=== PATIENT | female | born 2000 | race Caucasian/White ===

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

== ENCOUNTER 2019-03-22 08:14 | Emergency (ER) | payer SELFPAY ==
[2019-03-22 08:22] VITALS: BP 105/63
--- NOTE | 2019-03-22 09:06 | XRay Report ---
RIGHT HAND, 3 VIEWS INDICATION: Pain and swelling for 2 days. COMPARISON: None. IMPRESSION: No acute osseous or soft tissue abnormality. There is mild diffuse soft tissue swelli ng suggesting cellulitis could be present. No subcutaneous gas or radiopaque foreign body is identifi ed Signer Name: Colton Lake Jr, MD Signed: 03/22/2019 9:01 AM Workstation Name: [id number]
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
== END 2019-03-22 09:44 | disposition home or self-care (01) ==
LOC: ED 08:14
DX: S60.221A Contusion of right hand, initial encounter (principal); L03.113 Cellulitis of right upper limb; F17.200 Nicotine dependence, unspecified, uncomplicated; W22.8XXA Striking against or struck by other objects, initial encounter; Y93.89 Activity, other specified; Y92.89 Other specified places as the place of occurrence of the external cause; Y99.8 Other external cause status
CPT/HCPCS: 99283

== ENCOUNTER 2020-05-27 10:42 | Emergency (ER) | payer SELFPAY ==
[2020-05-27 10:57] VITALS: BP 109/61
--- NOTE | 2020-05-27 11:32 | Emergency Department Report ---
ED Female HPI - General Chief complaint: Abdominal Pain Stated complaint: BURNING WITH URINATION/DISHCARGE Time Seen by Provider: 05/27/20 11:21 Source: patient Mode of arrival: Ambulatory Limitations: No Limitations - History of Present Illness Initial comments: Is a pleasant 20-year-old female presents emerged department chief complaint of dysuria and vaginal discharge over the past week. Patient reports some suprapubic abdominal pain. She reports one unprotected sexual partner 1 month ago. She denies any associated fever, chills, night sweats, headache, dizziness, blurry vision, nausea, vomit, diarrhea, chest pain, shortness of breath or any other associated symptoms. She rates the severity of her abdominal pain is a 3 out of 10 described as cramping denies any aggravating or alleviating factors. - Related Data Previous Rx's Medication Instructions Recorded Last Taken Type metroNIDAZOLE [Flagyl] 500 mg PO Q12HR 7 Days tab 03/23/17 Unknown Rx Naproxen [Naprosyn] 500 mg PO BID #20 tablet 03/22/19 Unknown Rx Sulfamethoxazole/Trimethoprim 1 each PO BID #10 tablet 03/22/19 Unknown Rx [Bactrim DS TAB] Phenazopyridine [Pyridium] 200 mg PO TID #6 tab 05/27/20 Unknown Rx Allergies Allergy/AdvReac Type Severity Reaction Status Date / Time No Known Allergies Allergy Verified 05/27/20 10:53 ED Review of Systems ROS: Stated complaint: BURNING WITH URINATION/DISHCARGE Other details as noted in HPI Constitutional: denies: chills, fever Eyes: denies: eye pain, eye discharge, vision change ENT: denies: ear pain, throat pain Respiratory: denies: cough, shortness of breath, wheezing Cardiovascular: denies: chest pain, palpitations Endocrine: no symptoms reported Gastrointestinal: as per HPI, abdominal pain. denies: nausea, diarrhea Genitourinary: as per HPI, dysuria, discharge. denies: urgency Musculoskeletal: denies: back pain, joint swelling, arthralgia Skin: denies: rash, lesions Neurological: denies: headache, weakness, paresthesias Psychiatric: denies: anxiety, depression Hematological/Lymphatic: denies: easy bleeding, easy bruising ED Past Medical Hx - Past Medical History Previous Medical History?: No - Surgical History Past Surgical History?: No - Social History Smoking Status: Current Some Day Smoker Substance Use Type: None - Medications Home Medications: Home Medications Medication Instructions Recorded Confirmed Last Taken Type metroNIDAZOLE [Flagyl] 500 mg PO Q12HR 7 Days tab 03/23/17 Unknown Rx Naproxen [Naprosyn] 500 mg PO BID #20 tablet 03/22/19 Unknown Rx Sulfamethoxazole/Trimethoprim 1 each PO BID #10 tablet 03/22/19 Unknown Rx [Bactrim DS TAB] Phenazopyridine [Pyridium] 200 mg PO TID #6 tab 05/27/20 Unknown Rx ED Physical Exam - General Limitations: No Limitations General appearance: alert, in no apparent distress - Head Head exam: Present: atraumatic, normocephalic - Eye Eye exam: Present: normal appearance, PERRL, EOMI Pupils: Present: normal accommodation - ENT ENT exam: Present: normal exam, normal orophraynx, mucous membranes moist - Neck Neck exam: Present: normal inspection, full ROM. Absent: tenderness, meningismus - Respiratory Respiratory exam: Present: normal lung sounds bilaterally. Absent: respiratory distress, wheezes, rales, rhonchi, stridor - Cardiovascular Cardiovascular Exam: Present: regular rate, normal rhythm, normal heart sounds. Absent: systolic murmur, diastolic murmur, rubs, gallop - GI/Abdominal GI/Abdominal exam: Present: soft, normal bowel sounds. Absent: distended, tenderness, guarding, rebound, rigid - External exam: Present: normal external exam. Absent: erythema, swelling Speculum exam: Present: normal speculum exam, vaginal discharge, other (scant vaginal discharge, normal appearing cervix ) Bi-manual exam: Present: normal bi-manual exam, other (no CMT, no adnexal tenderness ). Absent: cervical motion tendernes, adnexal tenderness, adnexal mass - Extremities Exam Extremities exam: Present: normal inspection, full ROM, normal capillary refill. Absent: tenderness - Back Exam Back exam: Present: normal inspection, full ROM, tenderness. Absent: CVA tenderness (R), CVA tenderness (L) - Neurological Exam Neurological exam: Present: alert, oriented X3, normal gait - Psychiatric Psychiatric exam: Present: normal affect, normal mood - Skin Skin exam: Present: warm, dry, intact, normal color. Absent: rash ED Course Vital Signs 05/27/20 10:53 Temperature 98.1 F Pulse Rate 56 L Respiratory 18 Rate Blood Pressure 109/61 O2 Sat by Pulse 100 Oximetry ED Medical Decision Making - Medical Decision Making Patient's pelvic exam is relatively benign. Her cervix was nonfriable in appearance and she had no cervical motion tenderness or adnexal masses or adnexal tenderness. Making my suspicion for PID and TOA less likely. She was treated for cervicitis with Rocephin and azithromycin. Urine was unremarkable showing no signs of UTI. Her abdominal exam was benign with no tenderness over McBurney's point, no fever or other symptoms to suggest acute appendicitis. She had no severe sudden onset of pain or hematuria making nephrolithiasis unlikely as well as making ovarian torsion less likely. I recommend outpatient follow- up with her [employer] in the health department for any further STD testing. Also educated her that she was not tested for any other STDs other than gonorrhea, chlamydia and trichomonas that is very important that she follows up with the health department to be tested for other possible exposures to STDs such as hepatitis, syphilis, HIV and other possible exposures. She verbalized understanding the diagnosis, treatment plan and follow-up instructions and all of her questions were answered. - Differential Diagnosis cervicitis, PID, TOA, appendicitis Critical care attestation.: If time is entered above; I have spent that time in minutes in the direct care of this critically ill patient, excluding procedure time. ED Disposition Clinical Impression: Cervicitis Disposition: DC-01 TO HOME OR SELFCARE Is pt being admited?: No Condition: Stable Instructions: Abdominal Pain (ED), Cervicitis (ED) Prescriptions: Phenazopyridine [Pyridium] 200 mg PO TID #6 tab Referrals: ANDREA OSORIO MD [Primary Care Provider] - 3-5 Days EVERETTE GE MD [Staff Physician] - 3-[address] [facility] [Outside] - 3-5 Days Forms: STI Treatment and Prevention Time of Disposition: 12:27
[2020-05-27 11:50] LABS: Bilirubin,Urine NEG (Negative); Blood,Urine NEG (Negative); Color,Urine Yellow (Yellow); Mucus,Urine FEW /HPF; Protein,Urine <15 mg/dL mg/dL (Negative); WBC,Urine < 1.0 /HPF (0.0-6.0)
[2020-05-27 11:52] LABS: HCG Qualitative,Urine Negative (Negative)
[2020-05-27] MEDS ORDERED: LIDOCAINE-MPF (1%) 10 MG/1 ML VIAL 5 ML INFILTRATI ONE (12:17)
[2020-05-27] MEDS ORDERED: AZITHROMYCIN 250 MG TAB PO ONE (12:17)
== END 2020-05-27 12:48 | disposition home or self-care (01) ==
LOC: ED 10:42
DX: N72 Inflammatory disease of cervix uteri (principal); F17.200 Nicotine dependence, unspecified, uncomplicated; Z79.899 Other long term (current) drug therapy
CPT/HCPCS: 81001; 81025; 87210; 87591; 96372; 99284; J0696

== ENCOUNTER 2021-01-03 21:42 | Emergency (ER) | payer SELFPAY ==
[2021-01-03 22:11] VITALS: BP 107/61
[2021-01-03 22:54] LABS: Bilirubin,Urine NEG (Negative); Blood,Urine NEG (Negative); Color,Urine Yellow (Yellow); Protein,Urine <15 mg/dL mg/dL (Negative); Urobilinogen,Urine < 2.0 mg/dL (<2.0)
[2021-01-03 23:28] LABS: Basophils % (Auto) 0.8 % (0.0-1.8); Eosinophils # (Auto) 0.1 K/mm3 (0.0-0.4); Eosinophils % (Auto) 2.3 % (0.0-4.3); Hematocrit 42.3 % (30.3-42.9); Hemoglobin 14.4 gm/dl (10.1-14.3); Lymphocytes # (Auto) 2.9 K/mm3 (1.2-5.4); Lymphocytes % (Auto) 44.6 % (13.4-35.0); Mean Corpuscular HGB Conc 34 % (30-34); Mean Corpuscular Volume 85 fl (79-97); Monocytes # (Auto) 0.4 K/mm3 (0.0-0.8); Platelet Count 235 K/mm3 (140-440); Red Cell Distribution Width 14.2 % (13.2-15.2)
--- NOTE | 2021-01-03 23:41 | Emergency Department Report ---
ED Female HPI - General Chief complaint: Abdominal Pain Stated complaint: VAGINAL PAIN/DISCHARGE Source: patient, family Mode of arrival: Ambulatory Limitations: No Limitations - History of Present Illness Initial comments: Patient is a nulliparous 20-year-old -[place] female with no past medical history presents to the ED with complaint of acute onset persistent sup rapubic pressure and pain and vaginal discharge for the last 1 week, worse in the last 2 days. Patient admits to having unprotected sexual intercourse with one sexual partner. Patient states that her LMP was 2 weeks ago. Patient states that the pain in her pelvic area is more pressure-like and dull. Patient denies fever, chills, nausea, vomiting, diarrhea, dysuria, urinary frequency and urgency, low back pain, chest pain, shortness of breath, vaginal bleeding, dyspareunia, change in vision or cough and sore throat. MD Complaint: vaginal discharge, pelvic pain -: Sudden, week(s) (1) Location: suprapubic, other (vaginal) Radiation: non-radiating Severity: moderate Severity scale (0 -10): 4 Quality: dull, aching Consistency: constant Improves with: none Worsens with: none Are you Now?: No Associated Symptoms: denies other symptoms, vaginal discharge, abdominal pain (suprapubic). denies: vaginal bleeding, nausea/vomiting, fever/chills, headaches, loss of appetite, dysuria, hematuria, rash, seizure, shortness of breath, syncope, weakness - Related Data Sexually active: Yes : 0 Para: 0 A: 0 Previous Rx's Medication Instructions Recorded Last Taken Type metroNIDAZOLE [Flagyl] 500 mg PO Q12HR 7 Days tab 03/23/17 Unknown Rx Naproxen [Naprosyn] 500 mg PO BID #20 tablet 03/22/19 Unknown Rx Sulfamethoxazole/Trimethoprim 1 each PO BID #10 tablet 03/22/19 Unknown Rx [Bactrim DS TAB] Phenazopyridine [Pyridium] 200 mg PO TID #6 tab 05/27/20 Unknown Rx Ibuprofen [Motrin] 600 mg PO Q8H PRN #20 tablet 01/04/21 Unknown Rx metroNIDAZOLE [Flagyl] 500 mg PO Q12HR #14 tab 01/04/21 Unknown Rx Allergies Allergy/AdvReac Type Severity Reaction Status Date / Time No Known Allergies Allergy Verified 05/27/20 10:53 ED Review of Systems ROS: Stated complaint: VAGINAL PAIN/DISCHARGE Other details as noted in HPI Constitutional: denies: chills, fever Eyes: denies: eye pain, eye discharge, vision change ENT: denies: ear pain, throat pain Respiratory: denies: cough, shortness of breath, wheezing Cardiovascular: denies: chest pain, palpitations Endocrine: no symptoms reported Gastrointestinal: abdominal pain (suprapubic). denies: nausea, vomiting, diarrhea, constipation, hematemesis Genitourinary: discharge. denies: urgency, dysuria, frequency, hematuria, abnormal menses, dyspareunia Musculoskeletal: denies: back pain, joint swelling, arthralgia Skin: denies: rash, lesions Neurological: denies: headache, weakness, paresthesias Psychiatric: denies: anxiety, depression Hematological/Lymphatic: denies: easy bleeding, easy bruising ED Past Medical Hx - Past Medical History Previous Medical History?: No - Surgical History Past Surgical History?: No - Social History Smoking Status: Current Every Day Smoker Substance Use Type: Alcohol - Medications Home Medications: Home Medications Medication Instructions Recorded Confirmed Last Taken Type metroNIDAZOLE [Flagyl] 500 mg PO Q12HR 7 Days tab 03/23/17 Unknown Rx Naproxen [Naprosyn] 500 mg PO BID #20 tablet 03/22/19 Unknown Rx Sulfamethoxazole/Trimethoprim 1 each PO BID #10 tablet 03/22/19 Unknown Rx [Bactrim DS TAB] Phenazopyridine [Pyridium] 200 mg PO TID #6 tab 05/27/20 Unknown Rx Ibuprofen [Motrin] 600 mg PO Q8H PRN #20 tablet 01/04/21 Unknown Rx metroNIDAZOLE [Flagyl] 500 mg PO Q12HR #14 tab 01/04/21 Unknown Rx ED Physical Exam - General Limitations: No Limitations General appearance: alert, in no apparent distress - Head Head exam: Present: atraumatic, normocephalic, normal inspection - Eye Eye exam: Present: normal appearance, PERRL, EOMI Pupils: Present: normal accommodation - ENT ENT exam: Present: normal exam, normal orophraynx, mucous membranes moist, TM's normal bilaterally, normal external ear exam - Neck Neck exam: Present: normal inspection, full ROM - Respiratory Respiratory exam: Present: normal lung sounds bilaterally. Absent: respiratory distress, wheezes, rales, rhonchi, chest wall tenderness, accessory muscle use, decreased breath sounds, prolonged expiratory - Cardiovascular Cardiovascular Exam: Present: regular rate, normal rhythm, normal heart sounds. Absent: systolic murmur, diastolic murmur, rubs, gallop - GI/Abdominal GI/Abdominal exam: Present: soft, normal bowel sounds. Absent: tenderness, guarding, rebound, hyperactive bowel sounds, hypoactive bowel sounds - Bi-manual exam: Present: other (Pelvic exam deferred at this time, patient preferred self swab) - Extremities Exam Extremities exam: Present: normal inspection, full ROM, normal capillary refill - Back Exam Back exam: Present: normal inspection, full ROM. Absent: tenderness, CVA tenderness (R), CVA tenderness (L), muscle spasm, paraspinal tenderness, vertebral tenderness - Neurological Exam Neurological exam: Present: alert, oriented X3, CN II-XII intact, normal gait, reflexes normal - Psychiatric Psychiatric exam: Present: normal affect, normal mood - Skin Skin exam: Present: warm, dry, intact, normal color. Absent: rash ED Course Vital Signs 01/03/21 22:10 Temperature 98.8 F Pulse Rate 63 Respiratory 18 Rate Blood Pressure 107/61 O2 Sat by Pulse 97 Oximetry ED Medical Decision Making - Lab Data Result diagrams: 01/03/21 22:53 01/03/21 22:53 - Medical Decision Making This is a nulliparous 20-year-old -[place] female with no past medical history presents to the ED with complaint of acute onset persistent suprapubic pressure and pain and vaginal discharge for the last 1 week, worse in the last 2 days. Patient admits to having unprotected sexual intercourse with one sexual partner. Patient states that her LMP was 2 weeks ago. Patient states that the pain in her pelvic area is more pressure-like and dull. In the ED, patient is alert and oriented x3 and is not in any distress. Lab test results were reviewed and are all nonactionable. Wet prep test results was positive for Gardnerella vaginalis consistent with bacterial vaginosis. Patient was therefore discharged home on antibiotics and pain medications and advised to follow-up with her primary care physician in 5 to 7 days for reevaluation or return to the ED immediately if symptoms get worse. - Differential Diagnosis UTI; bacterial vaginosis; trichomonas; PID; STD; ; Critical care attestation.: If time is entered above; I have spent that time in minutes in the direct care of this critically ill patient, excluding procedure time. ED Disposition Clinical Impression: Vaginal discharge, Acute pain in female pelvis, Bacterial vaginosis Disposition: TO HOME OR SELFCARE Is pt being admited?: No Does the pt Need Aspirin: No Condition: Stable Instructions: Pelvic Pain, Female, [id number], Abdominal Pain (ED), Bacterial Vaginosis (ED), Bacterial Vaginosis, [id number] Additional Instructions: All lab test results were reviewed and are all nonactionable except for wet prep test which was positive for Gardnerella vaginalis consistent with bacterial vaginosis. Your symptoms are likely due to bacterial vaginosis causing vaginal discharge. Therefore take medication with food, drink plenty of fluids and follow-up with your primary care physician in 5 to 7 days for reevaluation. Return to the ED immediately if symptoms get worse. Prescriptions: metroNIDAZOLE [Flagyl] 500 mg PO Q12HR #14 tab Ibuprofen [Motrin] 600 mg PO Q8H PRN #20 tablet PRN Reason: Pain Referrals: [facility] [Provider Group] - 3-5 Days Forms: STI Treatment and Prevention Time of Disposition: 00:32 Print Language: DIVEHI
[2021-01-03 23:53] LABS: Alanine Aminotransferase 9 units/L (7-56); Albumin 4.6 g/dL (3.9-5); BUN/Creatinine Ratio 13; Blood Urea Nitrogen 12 mg/dL (7-17); Calcium 8.8 mg/dL (8.4-10.2); Hemolysis Index 8
== END 2021-01-04 00:51 | disposition home or self-care (01) ==
LOC: ED 21:42
DX: N76.0 Acute vaginitis (principal); B96.89 Other specified bacterial agents as the cause of diseases classified elsewhere; F17.200 Nicotine dependence, unspecified, uncomplicated; Z79.899 Other long term (current) drug therapy
CPT/HCPCS: 36415; 80053; 81001; 84703; 85025; 87210; 99283

== ENCOUNTER 2021-08-24 10:30 | Emergency (ER) | payer SELFPAY ==
--- NOTE | 2021-08-24 11:19 | Emergency Department Report ---
ED Female HPI - General Chief complaint: Urogenital-Female Stated complaint: VAGINAL DISCHARGE Time Seen by Provider: 08/24/21 10:46 Source: patient Mode of arrival: Ambulatory Limitations: No Limitations - History of Present Illness Initial comments: 21-year-old -[place] female presents to the emergency room complaining of 2 months of intermittent vaginal discharge. She states she has not been sexually active in the last 2 months. She also complains of generalized body aches that comes and goes and abdominal pain that comes and goes as well as a headache that comes and goes. States that she took Aleve last night. Patient reports her last menstrual period was 08/05/2021. She is 0. She denies any dysuria no fever no chills no nausea no vomiting. Onset/Timin -: month(s) Location: suprapubic Radiation: non-radiating Severity: mild Quality: sharp Consistency: intermittent Improves with: none Worsens with: none Are you Now?: No Last Menstrual Period: 08/05/21 EDC: 05/12/22 Associated Symptoms: vaginal discharge, abdominal pain. denies: vaginal bleeding, nausea/vomiting, fever/chills, headaches, loss of appetite, dysuria, hematuria, rash, shortness of breath, syncope, weakness - Related Data Sexually active: Yes : 0 Previous Rx's Medication Instructions Recorded Last Taken Type metroNIDAZOLE [Flagyl] 500 mg PO Q12HR 7 Days tab 03/23/17 Unknown Rx Naproxen [Naprosyn] 500 mg PO BID #20 tablet 03/22/19 Unknown Rx Sulfamethoxazole/Trimethoprim 1 each PO BID #10 tablet 03/22/19 Unknown Rx [Bactrim DS TAB] Phenazopyridine [Pyridium] 200 mg PO TID #6 tab 05/27/20 Unknown Rx Ibuprofen [Motrin] 600 mg PO Q8H PRN #20 tablet 01/04/21 Unknown Rx metroNIDAZOLE [Flagyl TAB] 500 mg PO Q12HR #14 tab 08/24/21 Unknown Rx Allergies Allergy/AdvReac Type Severity Reaction Status Date / Time No Known Allergies Allergy Verified 05/27/20 10:53 ED Review of Systems ROS: Stated complaint: VAGINAL DISCHARGE Other details as noted in HPI Comment: All other systems reviewed and negative ED Past Medical Hx - Social History Smoking Status: Current Every Day Smoker Substance Use Type: Alcohol - Medications Home Medications: Home Medications Medication Instructions Recorded Confirmed Last Taken Type metroNIDAZOLE [Flagyl] 500 mg PO Q12HR 7 Days tab 03/23/17 Unknown Rx Naproxen [Naprosyn] 500 mg PO BID #20 tablet 03/22/19 Unknown Rx Sulfamethoxazole/Trimethoprim 1 each PO BID #10 tablet 03/22/19 Unknown Rx [Bactrim DS TAB] Phenazopyridine [Pyridium] 200 mg PO TID #6 tab 05/27/20 Unknown Rx Ibuprofen [Motrin] 600 mg PO Q8H PRN #20 tablet 01/04/21 Unknown Rx metroNIDAZOLE [Flagyl TAB] 500 mg PO Q12HR #14 tab 08/24/21 Unknown Rx ED Physical Exam - General Limitations: No Limitations General appearance: alert, in no apparent distress - Head Head exam: Present: atraumatic, normocephalic - Eye Eye exam: Present: normal appearance - ENT ENT exam: Present: mucous membranes moist - Neck Neck exam: Present: normal inspection - Respiratory Respiratory exam: Present: normal lung sounds bilaterally. Absent: respiratory distress - Cardiovascular Cardiovascular Exam: Present: regular rate, normal rhythm. Absent: systolic murmur, diastolic murmur, rubs, gallop - GI/Abdominal GI/Abdominal exam: Present: soft, normal bowel sounds. Absent: distended, tenderness, guarding, rebound - Extremities Exam Extremities exam: Present: normal inspection - Back Exam Back exam: Present: normal inspection, full ROM - Neurological Exam Neurological exam: Present: alert, oriented X3, normal gait - Psychiatric Psychiatric exam: Present: normal affect, normal mood - Skin Skin exam: Present: warm, dry, intact, normal color. Absent: rash ED Course Vital Signs 08/24/21 10:34 Temperature 99 F Pulse Rate 65 Respiratory 20 Rate Blood Pressure 109/65 [Right] O2 Sat by Pulse 99 Oximetry ED Medical Decision Making - Medical Decision Making 21-year-old -Irish female presents to the emergency room complaining of 2 months of intermittent vaginal discharge. She states she has not been sexually active in the last 2 months. She also complains of generalized body aches that comes and goes and abdominal pain that comes and goes as well as a headache that comes and goes. States that she took Aleve last night. Patient reports her last menstrual period was 08/05/2021. She is 0. She denies any dysuria no fever no chills no nausea no vomiting. Urinalysis urine test has been sent. Patient has had negative abdominal exam. Discussed with patient that she can have normal vaginal discharge that will increase and decrease during her menstrual cycle and ovulation cycle. Patient states that she has been recently tested for STDs and does not feel that it can be that. Critical care attestation.: If time is entered above; I have spent that time in minutes in the direct care of this critically ill patient, excluding procedure time. ED Disposition Clinical Impression: Intermittent abdominal pain, Vaginal discharge Disposition: HOME / SELF CARE / HOMELESS Is pt being admited?: No Does the pt Need Aspirin: No Condition: Stable Instructions: Vaginitis Additional Instructions: Complete antibiotics as prescribed. Increase your water intake. Is very important you follow-up with a primary care provider or [facility] provider. Prescriptions: metroNIDAZOLE [Flagyl TAB] 500 mg PO Q12HR #14 tab Referrals: PRIMARY CARE [Primary Care Provider] - 3-5 Days [facility] [Provider Group] - 3-5 Days Time of Disposition: 13:18
[2021-08-24] MEDS ORDERED: ACETAMINOPHEN 325 MG TAB PO ONE (11:43)
[2021-08-24 12:15] LABS: Bilirubin,Urine NEG (Negative); Blood,Urine NEG (Negative); Color,Urine Yellow (Yellow); Protein,Urine <15 mg/dL mg/dL (Negative); Urobilinogen,Urine < 2.0 mg/dL (<2.0)
[2021-08-24 12:16] LABS: HCG Qualitative,Urine Negative (Negative)
[2021-08-24 13:31] VITALS: BP 100/51
== END 2021-08-24 13:31 | disposition home or self-care (01) ==
LOC: ED 10:30
DX: N89.8 Other specified noninflammatory disorders of vagina (principal); F17.200 Nicotine dependence, unspecified, uncomplicated; Z72.89 Other problems related to lifestyle; Z79.899 Other long term (current) drug therapy
CPT/HCPCS: 81001; 81025; 99283